=== PATIENT | female | born 1990 | race Caucasian/White ===

== ENCOUNTER 2020-12-31 11:53 | Outpatient (CLI) | payer OTHER ==
[2020-12-31 13:20] LABS: HCT - HEMATOCRIT 35.7 % (37.0-47.0); HGB - HEMOGLOBIN 11.8 g/dL (12.0-16.0); MEAN CORPUSCULAR HEMOGLOBIN 29.7 pg (27.0-31.0); MEAN CORPUSCULAR HGB CONC 33.1 g/dL (32.0-36.0); MEAN CORPUSCULAR VOLUME 89.9 fL (81.0-99.0); RED BLOOD COUNT 3.97 10^6/uL (4.20-5.40); RED CELL DISTRIBUTION WIDTH 12.6 % (12.0-15.0)
== END 2020-12-31 11:54 | disposition home or self-care (01) ==
LOC: LAB 11:53
PROVIDERS: ATTEND Obstetrics & Gynecology
DX: O09.90 Supervision of high risk pregnancy, unspecified, unspecified trimester (principal)
CPT/HCPCS: 36415; 82950; 85027; 86850

== ENCOUNTER 2021-01-30 08:00 | Outpatient (CLI) | payer OTHER | END 2021-01-30 23:59 | disposition home or self-care (01) | LOC: LAB.WC 08:00 | PROVIDERS: ATTEND Obstetrics & Gynecology | DX: Z36.85 Encounter for antenatal screening for Streptococcus B (principal) | CPT/HCPCS: 87797 ==

== ENCOUNTER 2021-02-21 07:29 | Inpatient (IN) | payer OTHER ==
[2021-02-21] MEDS ORDERED: LIDOCAINE-MPF 1% 30 ML VIAL ID PRN (08:29)
[2021-02-21] MEDS ORDERED: ONDANSETRON 4 MG/2 ML VIAL IVP PRN (08:29)
[2021-02-21] MEDS ORDERED: SODIUM CHLORIDE FLUSH 0.9% 10 ML SYRINGE IVP PRN (08:29)
[2021-02-21] MEDS ORDERED: fentaNYL 100 MCG/2 ML VIAL IVP PRN (08:29)
[2021-02-21] MEDS ORDERED: CARBOPROST TROMETHAMINE 250 MCG/ML AMP IM PRN (08:29)
[2021-02-21] MEDS ORDERED: OXYTOCIN/SODIUM CHLORIDE 500 ML IV PRN (08:29)
[2021-02-21] MEDS ORDERED: OXYTOCIN 10 UNIT/ML VIAL IM PRN (08:29)
[2021-02-21] MEDS ORDERED: TRANEXAMIC ACID IN NACL 1,000 MG/100 ML BAG IV PRN (08:29)
[2021-02-21] MEDS ORDERED: METHYLERGONOVINE 0.2 MG/ML VIAL IM PRN (08:29)
[2021-02-21] MEDS ORDERED: miSOPROStoL 200 MCG TABLET BC PRN (08:29)
[2021-02-21 08:43] LABS: BASOPHILS # (AUTO) 0.1 10^3/uL (0.0-0.1); BASOPHILS % (AUTO) 0.5 %; EOSINOPHILS # (AUTO) 0.3 10^3/uL (0.0-0.7); HCT - HEMATOCRIT 35.2 % (37.0-47.0); LYMPHOCYTES # (AUTO) 1.8 10^3/uL (1.5-3.5); LYMPHOCYTES % (AUTO) 18.5 %; MEAN CORPUSCULAR HEMOGLOBIN 30.2 pg (27.0-31.0); MEAN CORPUSCULAR HGB CONC 34.1 g/dL (32.0-36.0); MEAN CORPUSCULAR VOLUME 88.4 fL (81.0-99.0); MEAN PLATELET VOLUME 10.8 fL (7.9-10.8); MONOCYTES # (AUTO) 0.9 10^3/uL (0.0-1.0); MONOCYTES % (AUTO) 9.4 %; NEUTROPHILS # (AUTO) 6.5 10^3/uL (1.5-6.6); NEUTROPHILS % (AUTO) 67.9 %; PLT - PLATELET COUNT 233 10^3/uL (130-450); RED BLOOD COUNT 3.98 10^6/uL (4.20-5.40); RED CELL DISTRIBUTION WIDTH 12.9 % (12.0-15.0); WHITE BLOOD COUNT 9.6 x10^3/uL (4.8-10.8)
[2021-02-21] MEDS ORDERED: LACTATED RINGERS 1,000 ML IV SCH (09:00)
--- NOTE | 2021-02-21 09:18 | HISTORY & PHYSICAL EXAMINATION ---
Admit History - Visit Reason Visit Reason: Other (Induction of labor) - : 3 Parity: 1 Premature: 0 Ectopic: 0 : 0 Care: positive: Other Risk/History: positive: Pre-eclampsia (Patient had Severe Pre-Eclampsia with last delivery and was induced at 37 0/7 weeks.) Complications This : positive: None - Mother's Labs Mother's Blood Type: positive: A Mother's RH: positive: Positive GBS: positive: Group B Step Negative Review of Systems - Constitutional Constitutional: denies: Fatigue, Fever - Respiratory Respiratory: denies: Cough, Sputum production - Gastrointestinal Gastrointestinal: denies: Abdominal pain - Genitourinary Genitourinary: denies: Dysuria - Musculoskeletal Musculoskeletal: denies: Muscle pain - Integumentary Integumentary: denies: Rash - Neurological Neurological: denies: General weakness, Headache - Psychiatric Psychiatric: denies: Depression, Anxiety Physical - Abdominal Exam Uterine Resting Tone: positive: Soft - Monitoring Heart Rate Baseline: 135 Strip Review: positive: Category I - Presentation Presentation: positive: Vertex - Vaginal Exam Membranes: positive: Membranes intact Dilation (in cm): FT Effacement (%): 0 Station: positive: -3, Ballotable Cervical Position: positive: Posterior - Speculum Exam Speculum Exam Performed: positive: No - Other Notes Labor Progress Note/Additional Text: O- BP is 136/83 General: Patient is resting in bed, sitting up and in no apparent distress. Chest: Clear to auscultation. Good breath sounds in all burt. No rales, Wheezes, or rhonchi. Heart: RRR without murmur or gallop. Abdomen: Soft, non-tender to palpation. Gravid. Extremities: No edema, no calf tenderness. Neuro: DTR's +2/+4 CS: FT/Long/-3, soft, posterior and to left of midline. Mike's vertex presentation. Monitor strip: Baseline 135 with moderate variability and Accelerations are present. No decelerations. No contractions. Reactive monitor strip and Category I. Consented patient for Elective Induction of labor. All questions answered. Thaddeus izquierdo signed consent. A-IUP 39 1/7 with history of Severe Pre-Eclampsia with previous delivery. Elective induction. P- Begin induction with 50mcg of Cytotec buccal. Routine labor orders. Continuous monitoring.
[2021-02-21] MEDS: miSOPROStoL 100 MCG TABLET BC SCH ×4 (10:18→23:42)
--- NOTE | 2021-02-21 12:34 | ANESTHESIA ---
Pre-Anesthesia VS, & Labs - Diagnosis active labor - Procedure labor epidural Vital Signs: Temp Pulse Resp BP Pulse Ox 36.8 C 70 16 136/83 H 02/21/21 08:00 02/21/21 08:00 02/21/21 08:00 02/21/21 08:00 Height: 5 ft 8 in Weight (kg): 99.337 kg Body Mass Index: 33.3 BMI Classification: Obese - Is Patient ?: Yes - Lab Results Current Lab Results: Laboratory Tests 02/21/21 08:00: WBC 9.6, RBC 3.98 L, Hgb 12.0, Hct 35.2 L, MCV 88.4, MCH 30.2, MCHC 34.1, RDW 12.9, Plt Count 233, MPV 10.8, Neut # (Auto) 6.5, Lymph # (Auto) 1.8, Upson # (Auto) 0.9, Eos # (Auto) 0.3, Baso # (Auto) 0.1, Absolute Nucleated RBC 0.00, Nucleated RBC % 0.0 02/21/21 08:00: Blood Type A POSITIVE, Antibody Screen NEGATIVE Lab results reviewed: Yes Fish Bones: 02/21/21 08:00 Home Medications and Allergies Active Medications Carboprost Tromethamine (Carboprost Tromethamine 250 Mcg/Ml Amp) 250 mcg IM Q15M PRN PRN Reason: Step 4: Hemorrhage protocol Stop: 02/26/21 08:32 Fentanyl (Fentanyl 100 Mcg/2 Ml Vial) 50 mcg IVP Q1H PRN PRN Reason: PAIN Oxytocin/Sodium Chloride (Pitocin/Sodium Chloride) 500 mls @ 999 mls/hr IV PRN PRN; Protocol PRN Reason: POST- HEMORR PREVENTION Stop: 02/26/21 08:32 Tranexamic Acid (Tranexamic 1,000 Mg/100ml-Nacl) 1,000 mg in 100 mls @ 600 mls/hr IV .ONCE PRN PRN Reason: EBL >1200mL and within 3hr Stop: 02/26/21 08:32 Lactated Ringer's (Lr) 1,000 mls @ 150 mls/hr IV .Q6H40M KATHARINE Lidocaine HCl (Lidocaine-Mpf 1% 30 Ml Vial) 30 ml ID .ONCE PRN PRN Reason: PERINEAL REPAIR Stop: 02/26/21 08:32 Methylergonovine Maleate (Methylergonovine 0.2 Mg/Ml Vial) 0.2 mg IM .ONCE PRN PRN Reason: Step 2: Hemorrhage protocol Stop: 02/26/21 08:32 Misoprostol (Misoprostol 200 Mcg Tablet) 800 mcg BC .ONCE PRN PRN Reason: Step 3: Hemorrhage protocol Stop: 02/26/21 08:32 Misoprostol (Misoprostol 100 Mcg Tablet) 50 mcg BC Q4H KATHARINE Last Admin: 02/21/21 10:18 Dose: 50 mcg Documented by: Ondansetron HCl (Ondansetron 4 Mg/2 Ml Vial) 4 mg IVP Q4H PRN PRN Reason: Nausea / Vomiting Oxytocin (Oxytocin 10 Unit/Ml Vial) 10 unit IM .ONCE PRN PRN Reason: Step one: If no IV access Stop: 02/26/21 08:32 Sodium Chloride (Sodium Chloride Flush 0.9% 10 Ml Syringe) 10 ml IVP PRN PRN PRN Reason: NEEDED PER PROVIDER ORDERS Allergies/Adverse Reactions: Allergies Allergy/AdvReac Type Severity Reaction Status Date / Time No Known Drug Allergies Allergy Verified 02/21/21 10:16 Anes History & Medical History - Anesthetic History Anesthesia Complications: reports: Other-see comment (multiple attempts at last epidural) Family history of Anesthesia Complications: Denies Family history of Malignant Hyperthermia: Denies - Medical History Cardiovascular: reports: None Pulmonary: reports: None Smoking Status: Never smoker - Obstetrical History : 3 Parity: 1 Events: reports: Pre-eclampsia (Patient had Severe Pre-Eclampsia with last delivery and was induced at 37 0/7 weeks.) Complications: reports: None Exam General: Alert, Oriented x3, Cooperative, No acute distress Dental: WNL Mouth Openin Fingerbreadth Neck Mobility: Normal Mallampati classification: II Respiratory: Lungs clear, Normal breath sounds, No respiratory distress, No accessory muscle use Cardiovascular: Regular rate, Normal S1, Normal S2, No murmurs Plan Anesthesia Type: Epidural Consent for Procedure(s) Verified and Reviewed: Yes Code Status: Attempt Resuscitation ASA classification: 2-Mild systemic disease Is this case an emergency?: No
[2021-02-22] MEDS: miSOPROStoL 100 MCG TABLET BC SCH (06:21)
[2021-02-22] MEDS ORDERED: ROPIVACAINE 0.2% 200 MG/100 ML BAG EP ONE (11:38)
--- NOTE | 2021-02-22 12:34 | PROVIDER PROGRESS NOTE ---
Labor Progress Note - Uterine Monitoring Contraction Frequency (min/apart): Iregular Contraction Intensity: positive: Mild Uterine Resting Tone: positive: Soft - Monitoring Monitor Mode: positive: External ultrasound Heart Rate Baseline: 130 Heart Rate Variability: positive: Moderate (6-25 bmp) Accelerations: positive: Present, 15x15 Decelerations: positive: None Strip Review: positive: Category I - Vaginal Exam Dilation (in cm): 2 Effacement (%): 50 Station: -3, Ballotable
[2021-02-22] MEDS ORDERED: NALBUPHINE 10 MG/ML AMP IVP PRN (12:35)
[2021-02-22] MEDS ORDERED: METOCLOPRAMIDE 10 MG/2 ML VIAL IVP PRN (12:35)
[2021-02-22] MEDS ORDERED: ROPIVACAINE 0.2% 200 MG/100 ML BAG EP PRN (12:35)
[2021-02-22] MEDS ORDERED: diphenhydrAMINE INJ 50 MG/ML VIAL IVP PRN (12:35)
[2021-02-22] MEDS ORDERED: ONDANSETRON 4 MG/2 ML VIAL IVP PRN (12:35)
[2021-02-22] MEDS ORDERED: NALOXONE 0.4 MG/ML VIAL IVP PRN (12:35)
[2021-02-22] MEDS ORDERED: ePHEDrine 50 MG/ML VIAL IVP PRN (12:35)
--- NOTE | 2021-02-22 12:39 | PROVIDER PROGRESS NOTE ---
Labor Progress Note - Uterine Monitoring Contraction Intensity: positive: Mild - Monitoring Monitor Mode: positive: External ultrasound Heart Rate Variability: positive: Moderate (6-25 bmp) Accelerations: positive: Present, 15x15 Decelerations: positive: None - Vaginal Exam Dilation (in cm): 2 Effacement (%): 50 Cervical Position: Midposition (Patient was feeling more pressure and when we removed her underwear for exam she had clear fluid and vernix on perineum. Cervix was 23/50/-3, ballotable. Fetus had had a couple of very quick variables. Patient had two maternal heart rate spikes to 240 within 6 minutes of each other.)
--- NOTE | 2021-02-22 12:42 | PROVIDER PROGRESS NOTE ---
Labor Progress Note - Uterine Monitoring Contraction Frequency (min/apart): 2-3 Contraction Intensity: positive: Moderate Uterine Resting Tone: positive: Soft - Monitoring Monitor Mode: positive: Spiral electrode Heart Rate Variability: positive: Moderate (6-25 bmp) Accelerations: positive: Present, 15x15 Decelerations: positive: Variable Strip Review: positive: Category II - Vaginal Exam Dilation (in cm): 9.5 Station: -1 (Patient started to progress and RN examined and found her to be 5- 6cm prior to epidural. Patient started having some deep variables and I entered room and checked patient. Audible decelerations while patient was on left side. CX was found to be 9.5/100/-1. FSE placed.) - Labor Progress Note Labor Progress Note/Additional Text: Patient was placed on right side and explained that likely has a nuchal cord. Moderate varaiblity is present. Category II monitor strip. A-Active labor , progressing quickly. P- Continuous monitoring with FSE, Anticipate .
--- NOTE | 2021-02-22 14:02 | DELIVERY NOTE ---
Delivery Note - Infant Delivery Method Infant Delivery Method: positive: Spontaneous vaginal delivery - Cervical Ripening Method Cervical Ripening Method: positive: Misoprostil - Presentation Presentation: positive: Vertex, MIRTA - right occiput anterior - Nuchal Cord Nuchal Cord: positive: Present - Anesthetic Anesthetic Type: - Amniotic Fluid Description Amniotic Fluid Description: positive: Clear - Episiotomy Type Episiotomy Type: positive: None - Laceration Laceration: positive: None - Delivery Outcome Delivery Outcome: positive: Livebirth - [place]: positive: Placed in direct skin contact with mother (Tight nuchal cord, taken to warmer at 8-[address] Jimenez was on unit and came and assessed the infant. Apgars of 7/8.), Stimulated [place] sex: positive: Male - Cord Cord: positive: 3 vessels - Placenta Placenta: positive: Intact, Spontaneous - Estimated Blood Loss Estimated Blood Loss (in cc): 100 - Post Delivery Events Post Delivery Events: positive: No post delivery events - Delivery Comments (Free Text/Narrative) Delivery Comments (Free Text/Narrative): Patient was 2cm at 10:30 this morning, brian irregularly. Patient started to feel more painful contractions and epidural anesthesia placed. Patient wa 5- 6 cm and within 20 minutes was feeling pressure. Patient was having variable decelerations to the 90-'s and FSE placed. Patien was 9.5cm and -1 station. Patient felt progressive increase in pressure. Patient was complete and started pushing. Patient was complete at 1305, Pushed for 37 minutes. Patient delivered the head over intact perineum. Head delivered in OA position. Tight nuchal cord was clamped times two and cut. FSE cut free. Anterior shoulder delivered with maternal forces. Posterior shoulder and remainder of infant delivered spontaneously. placed on mother's abdomen. Living male with Apgars of 7/8. At 8 minutes of life he was taken to warmer to get a more vigorous cry and assessment. Dr. Jimenez, mine expert came in room and examined infant. Pitocin was started in IV after delivery of . Placenta delivered spontan eously, intact, BRITTNEY at 1346, four minutes after . Cervix was inspected and found to be bruised at 10-12, but intact without laceration or tear. A small, superficial periurethral laceration was present to left of midline. No lacerations or tears required suturing. Hemostasis was present. Sponges and instrument counts were correct. Patient is resting in stable condition. EBL is 100cc.
[2021-02-22] MEDS ORDERED: LACTATED RINGERS 1,000 ML IV SCH (15:00)
[2021-02-22] MEDS: IBUPROFEN 600 MG TABLET PO SCH (18:22)
[2021-02-22] MEDS: ACETAMINOPHEN 325 MG TABLET PO PRN ×2 (18:22→23:59)
[2021-02-23] MEDS: IBUPROFEN 600 MG TABLET PO SCH ×2 (00:54→08:14)
[2021-02-23 06:09] LABS: BASOPHILS # (AUTO) 0.1 10^3/uL (0.0-0.1); BASOPHILS % (AUTO) 0.4 %; EOSINOPHILS # (AUTO) 0.2 10^3/uL (0.0-0.7); EOSINOPHILS % (AUTO) 1.4 %; HGB - HEMOGLOBIN 10.6 g/dL (12.0-16.0); LYMPHOCYTES # (AUTO) 2.1 10^3/uL (1.5-3.5); LYMPHOCYTES % (AUTO) 14.5 %; MEAN CORPUSCULAR HEMOGLOBIN 30.7 pg (27.0-31.0); MEAN CORPUSCULAR HGB CONC 34.2 g/dL (32.0-36.0); MEAN CORPUSCULAR VOLUME 89.9 fL (81.0-99.0); MEAN PLATELET VOLUME 10.8 fL (7.9-10.8); MONOCYTES # (AUTO) 1.2 10^3/uL (0.0-1.0); MONOCYTES % (AUTO) 8.1 %; NEUTROPHILS # (AUTO) 10.9 10^3/uL (1.5-6.6); PLT - PLATELET COUNT 188 10^3/uL (130-450); RED BLOOD COUNT 3.45 10^6/uL (4.20-5.40); RED CELL DISTRIBUTION WIDTH 13.1 % (12.0-15.0); WHITE BLOOD COUNT 14.5 x10^3/uL (4.8-10.8)
[2021-02-23] MEDS: ACETAMINOPHEN 325 MG TABLET PO PRN (08:14)
--- NOTE | 2021-02-23 12:35 | Discharge Plan ---
Discharge Plan Problem Reviewed?: No Disposition: Home, Self Care Condition: Good Diet: Regular Activity Restrictions: Pelvic Rest Shower Restrictions: No Driving Restrictions: No Weight Bearing: Full Weight No Smoking: If you smoke, Please STOP! Call for help.
--- NOTE | 2021-02-23 12:38 | DISCHARGE SUMMARY ---
"Discharge Summary Admit Date: 02/21/21 Discharge Date: 02/23/21 Discharging Provider: Maria Eugenia Marie DO Condition at Discharge: Good Discharge Disposition: 01 Home, Self Care - DIAGNOSES Admission Diagnoses: IUP 39 2/7 Elective Induction Discharge Diagnoses with Status of Each Condition: S/P after induction of Labor. - HPI History of Present Illness: 31 yo at 39 1/7 weeks presented for Induction of labor. Patient had excellent Care. Patient had a history of Severe Pre-Eclampsia with her last and was induced at 37 0/7 weeks. - CONSULTS | PROCEDURES Procedures: Procedures: Cervical ripening and Induction of Labor with Cytotec. Epidural Anesthesia placed. Normal Spontaneous Vaginal Delivery. - HOSPITAL COURSE Hospital Course: Patient was admitted for Elective Induction of labor at 39 1/7 weeks. Patient was given Cytotec for 4 doses to attempt to ripen her cervix. Patient had SROM on 02/22/21 in the morning. Patient progressed and had epidural placed. Patient progressed to complete fairly quickly. Patient pushed for 37 minutes and had over intact perineum. Living male with Apgars of 7/8, with tight nuchal cord was delivered. EBL was 100cc. course is going well. Patient is ambulating, urinating, tolerating a regular diet. Patient is breast feeding. Patient's pain is controlled with Motrin and Tylenol. Patient desires to be discharged today. - ALLERGIES Allergies/Adverse Reactions: Allergies Allergy/AdvReac Type Severity Reaction Status Date / Time No Known Drug Allergies Allergy Verified 02/21/21 10:16 - PHYSICAL EXAM AT DISCHARGE General Appearance: positive: No acute distress Eyes Bilateral: positive: Normal inspection Respiratory: positive: Breath sounds nml. negative: Wheezes, Rales Cardiovascular: positive: Regular rate & rhythm, No murmur, No gallop Abdomen: positive: Non-tender, Nml bowel sounds, Other (Fundus is firm, non- tender, below the umbilicus) Skin: positive: Color nml Extremities: positive: No pedal edema. negative: Calf tenderness Neurologic/Psychiatric: positive: Oriented x3, Mood/affect nml - LABS Result Diagrams: 02/23/21 05:55 - QUALITY (Female Hip Fx Only) Was patient sent home on osteoporosis medication?: No - FOLLOW UP Follow Up: Follow-up in Clinic on 02/28/21 as already scheduled. Call for fever, chills, nausea, vomiting, headaches, blurred vision. Call for any concerns. - TIME SPENT Time Spent in Discharge (Minutes): 30"
[2021-02-23 17:02] VITALS: BP 115/85
== END 2021-02-23 15:15 | disposition home or self-care (01) | DRG 807 ==
LOC: WFO 07:29 → FBP 07:33 → WFO 08:28 → FBP 08:29
PROVIDERS: ADMIT Obstetrics & Gynecology; ATTEND Obstetrics & Gynecology
PROC: 3E0DXGC Introduction of Other Therapeutic Substance into Mouth and Pharynx, External Approach (ICD-10-PCS; principal; 2021-02-21)
PROC: 10E0XZZ Delivery of Products of Conception, External Approach (ICD-10-PCS; 2021-02-22)
DX: O71.82 Other specified trauma to perineum and vulva (principal); Z37.0 Single live birth; O69.81X0 Labor and delivery complicated by cord around neck, without compression, not applicable or unspecified; Z3A.39 39 weeks gestation of pregnancy; Z87.59 Personal history of other complications of pregnancy, childbirth and the puerperium; O99.214 Obesity complicating childbirth
CPT/HCPCS: 36415; 85025; 86850; 86900; 86901; A9270; J7120